=== PATIENT | female | born 1985 | race Two or more races ===

== ENCOUNTER 2016-12-05 19:36 | Emergency (ER) | payer MEDICAID ==
[2016-12-05 20:13] VITALS: BP 149/69
--- NOTE | 2016-12-05 20:30 | EDM.PDOC ---
ED HPI GENERAL MEDICAL PROBLEM - General Chief Complaint: General Stated Complaint: NOT FEELING WELL Time Seen by Provider: 12/05/16 20:10 Source of Information: Reports: Patient History Limitations: Reports: No Limitations - History of Present Illness INITIAL COMMENTS - FREE TEXT/NARRATIVE: Rosa comes to [facility] ED with a month long hx of myalgias affecting the upper back and shoulder girdle, flanks and pelvis, associated with malaise. Her neck feels full at times, and she is suspicious of swollen lymph nodes. She was diagnosed with nephrolithiasis last year, and reported told she had swollen lymph nodes. There is no fever, chills, sweats, wt loss, blood in the stool or urine, or rash. She is taking no meds. 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 at home Generalized Pain Score (Numeric/FACES): 4 - Related Data Allergies Allergy/AdvReac Type Severity Reaction Status Date / Time No Known Allergies Allergy Verified 12/05/16 20:17 Home Meds: Home Meds NK [No Known Home Meds] 12/05/16 [History] ED ROS GENERAL - Review of Systems Review Of Systems: See Below Constitutional: Reports: Malaise HEENT: Reports: No Symptoms Respiratory: Reports: No Symptoms Cardiovascular: Reports: No Symptoms Endocrine: Reports: No Symptoms GI/Abdominal: Reports: No Symptoms : Reports: No Symptoms Musculoskeletal: Reports: Neck Pain, Shoulder Pain, Back Pain, Muscle Pain, Muscle Stiffness, Other (flank and pelvic girdle pain ) Skin: Reports: Other Neurological: Reports: Headache Psychiatric: Reports: Anxiety Hematologic/Lymphatic: Reports: No Symptoms Immunologic: Reports: No Symptoms ED EXAM, GENERAL - Physical Exam Exam: See Below Exam Limited By: No Limitations General Appearance: Alert, WD/WN, No Apparent Distress, Anxious Eye Exam: Bilateral Eye: EOMI, Normal Inspection, PERRL Ears: Normal External Exam, Normal TMs Nose: Normal Inspection Throat/Mouth: Normal Inspection, Normal Lips, Normal Teeth, Normal Gums, Normal Oropharynx, Normal Voice, No Airway Compromise Head: Normocephalic Neck: Normal Inspection, Supple, Full Range of Motion Respiratory/Chest: Lungs Clear, Normal Breath Sounds, No Accessory Muscle Use, Chest Non-Tender Cardiovascular: Normal Peripheral Pulses, Regular Rate, Rhythm, No Edema GI/Abdominal: Normal Bowel Sounds, Soft, Non-Tender, No Organomegaly, No Distention, No Mass Rectal (Female) Exam: Deferred Back Exam: Normal Inspection, Other (shoulder girdle and pelvic girdle tenderness) Extremities: Normal Inspection, Normal Range of Motion, No Pedal Edema, Normal Capillary Refill Neurological: Alert, Oriented, CN II-XII Intact, Normal Cognition, Normal Gait, Normal Reflexes, No Motor/Sensory Deficits Psychiatric: Normal Affect, Anxious Skin Exam: Warm, Dry, Other (acne) Lymphatic: No Adenopathy Course - Vital Signs Text/Narrative:: Following assession at the [facility] ED, screening labs and a port chest x ray were obtained. I administered Percocet 5/325 for comfort while awaiting results. The CPK 304 U/L was the only result out of range. The chest x ray appeared normal for age. Last Recorded V/S: Last Vital Signs Temp 36.8 C 12/05/16 20:00 Pulse 69 12/05/16 20:00 Resp 18 12/05/16 20:00 BP 149/69 H 12/05/16 20:00 Pulse Ox 99 12/05/16 20:00 - Orders/Labs/Meds Orders: Active Orders 24 hr Category Date Time Status Chest 2V [CR] Stat Exams 12/05/16 21:38 Taken Labs: Laboratory Tests 12/05/16 12/05/16 12/05/16 Range/Units 20:30 20:30 20:30 WBC 9.4 (4.5-12.0) X10-3/uL RBC 4.94 (3.23-5.20) x10(6)uL Hgb 13.0 (11.5-15.5) g/dL Hct 40.1 (30.0-51.3) % MCV 81.1 (80-96) fL MCH 26.3 L (27.7-33.6) pg MCHC 32.4 (32.2-35.4) g/dL RDW 13.8 (11.5-15.5) % Plt Count 305 (125-369) X10(3)uL MPV 8.7 (7.4-10.4) fL Neut % (Auto) 62.4 (46-82) % Lymph % (Auto) 26.0 (13-37) % [place] % (Auto) 7.0 (4-12) % Eos % (Auto) 4 (1.0-5.0) % Baso % (Auto) 1 (0-2) % Neut # (Auto) 5.9 (1.6-8.3) # Lymph # (Auto) 2.4 (0.6-5.0) # [place] # (Auto) 0.7 (0.0-1.3) # Eos # (Auto) 0.3 (0.0-0.8) # Baso # (Auto) 0.1 (0.0-0.2) # ESR 8 (0-20) mm/hr Sodium 137 (135-145) mmol/L Potassium 3.7 (3.5-5.3) mmol/L Chloride 108 (100-110) mmol/L Carbon Dioxide 23 (23-29) mmol/L BUN 10 (5-20) mg/dL Creatinine 0.6 (0.6-1.3) mg/dL Est Cr Clr Drug Dosing 117.31 mL/min Estimated GFR (MDRD) > 60 (>60) BUN/Creatinine Ratio 16.7 (9-20) Glucose 100 (80-116) mg/dL Calcium 9.3 (8.6-10.2) mg/dL Total Bilirubin 0.6 (0.1-1.3) mg/dL AST 28 H (5-27) IU/L ALT 30 H (14-26) IU/L Alkaline Phosphatase 88 (56-112) IU/L Creatine Kinase 304 H* (60-160) IU/L C-Reactive Protein 0.9 (0.0-1.0) mg/dL Total Protein 7.1 (6.0-8.0) g/dL Albumin 4.1 (3.5-5.2) g/dL Globulin 3.0 g/dL Albumin/Globulin Ratio 1.4 TSH, Ultra Sensitive 1.78 (0.4-5.5) nlU/mL Urine Color (YELLOW) Urine Appearance (CLEAR) Urine pH (5.0-6.5) Ur Specific [place] (1.010-1.025) Urine Protein (NEGATIVE) mg/dL Urine Glucose (UA) (NEGATIVE) mg/dL Urine Ketones (NEGATIVE) mg/dL Urine Occult Blood (NEGATIVE) Urine Nitrite (NEGATIVE) Urine Bilirubin (NEGATIVE) Urine Urobilinogen (NEGATIVE) mg/dL Ur Leukocyte Esterase (NEGATIVE) Urine RBC (0) Urine WBC (0) Ur Squamous Epith Cells (NS,R,O) Urine Bacteria (NS) Urine HCG, Qual (NEGATIVE) 12/05/16 12/05/16 Range/Units 21:00 21:00 WBC (4.5-12.0) X10-3/uL RBC (3.23-5.20) x10(6)uL Hgb (11.5-15.5) g/dL Hct (30.0-51.3) % MCV (80-96) fL MCH (27.7-33.6) pg MCHC (32.2-35.4) g/dL RDW (11.5-15.5) % Plt Count (125-369) X10(3)uL MPV (7.4-10.4) fL Neut % (Auto) (46-82) % Lymph % (Auto) (13-37) % [place] % (Auto) (4-12) % Eos % (Auto) (1.0-5.0) % Baso % (Auto) (0-2) % Neut # (Auto) (1.6-8.3) # Lymph # (Auto) (0.6-5.0) # [place] # (Auto) (0.0-1.3) # Eos # (Auto) (0.0-0.8) # Baso # (Auto) (0.0-0.2) # ESR (0-20) mm/hr Sodium (135-145) mmol/L Potassium (3.5-5.3) mmol/L Chloride (100-110) mmol/L Carbon Dioxide (23-29) mmol/L BUN (5-20) mg/dL Creatinine (0.6-1.3) mg/dL Est Cr Clr Drug Dosing mL/min Estimated GFR (MDRD) (>60) BUN/Creatinine Ratio (9-20) Glucose (80-116) mg/dL Calcium (8.6-10.2) mg/dL Total Bilirubin (0.1-1.3) mg/dL AST (5-27) IU/L ALT (14-26) IU/L Alkaline Phosphatase (56-112) IU/L Creatine Kinase (60-160) IU/L C-Reactive Protein (0.0-1.0) mg/dL Total Protein (6.0-8.0) g/dL Albumin (3.5-5.2) g/dL Globulin g/dL Albumin/Globulin Ratio TSH, Ultra Sensitive (0.4-5.5) nlU/mL Urine Color Yellow (YELLOW) Urine Appearance Clear (CLEAR) Urine pH 7.0 H (5.0-6.5) Ur Specific [place] 1.020 (1.010-1.025) Urine Protein Negative (NEGATIVE) mg/dL Urine Glucose (UA) Normal (NEGATIVE) mg/dL Urine Ketones Negative (NEGATIVE) mg/dL Urine Occult Blood Negative (NEGATIVE) Urine Nitrite Negative (NEGATIVE) Urine Bilirubin Negative (NEGATIVE) Urine Urobilinogen Normal (NEGATIVE) mg/dL Ur Leukocyte Esterase Negative (NEGATIVE) Urine RBC Not seen (0) Urine WBC 0-5 (0) Ur Squamous Epith Cells Few H (NS,R,O) Urine Bacteria Few H (NS) Urine HCG, Qual Negative (NEGATIVE) Meds: Medications Discontinued Medications Generic Name Dose Route Start Last Admin Trade Name Freq PRN Reason Stop Dose Admin Oxycodone/Acetaminophen 1 tab 12/05/16 21:11 Percocet 325-5 Mg PO 12/05/16 21:12 ONETIME ONE Departure - Departure Time of Disposition: 21:44 Disposition: Home, Self-Care 01 Condition: Fair Clinical Impression: Myalgia - Discharge Information Referrals: PCP,Not In Area [Primary Care Provider] - Forms: ED Department Discharge - Problem List & Annotations (1) Myalgia SNOMED Code(s): 35577143 Code(s): M79.1 - MYALGIA Status: Acute Current Visit: Yes Annotation/ Comment:: Myalgias NOS. Further assessment is needed. She may take NSAIDs for comfort in the interim. - Problem List Review Problem List Initiated/Reviewed/Updated: Yes - My Orders Last 24 Hours: My Active Orders 12/05/16 21:38 Chest 2V [CR] Stat - Assessment/Plan Last 24 Hours: My Active Orders 12/05/16 21:38 Chest 2V [CR] Stat Plan: Follow up with PCP.
[2016-12-05] MEDS ORDERED: Acetaminophen/oxyCODONE 325-5 MG Tab PO ONE (21:11)
--- NOTE | 2016-12-10 12:14 | CR ---
INDICATION: Myalgias for one month. COMPARISON: None. PA AND LATERAL CHEST: Moderate perihilar, bibasilar segmental atelectasis, and/ or parenchymal scarring change with volume loss. No cardiomegaly or other asymmetric focal airspace opacity, large pleural effusion, interstitial edema, pneumothorax. Minimal degenerative spondylosis thoracic spine. IMPRESSION: Moderate perihilar, bibasilar segmental atelectasis, and/or parenchymal scarring change. MTDD
== END 2016-12-05 22:00 | disposition home or self-care (01) ==
LOC: FB.ED 19:36
DX: M79.1 Myalgia (principal)
CPT/HCPCS: 36415; 71020; 80053; 81001; 81025; 82550; 84443; 85025; 85651; 86140; 99283